=== PATIENT | female | born 2000 | race Caucasian/White ===

== ENCOUNTER 2022-01-16 18:17 | Emergency (ER) | payer OTHER, SELFPAY ==
[2022-01-16 18:22] VITALS: BP 109/75; PULSE 78; RESP 20; TEMP 36.7; O2SAT 97; BMI 22.9
--- NOTE | 2022-01-16 18:45 | ED.GENADULT ---
HPI - General Adult General Time Seen by Provider: 18:45 Date Seen: 01/16/22 Chief complaint: Headache/Migraine Stated complaint: Migraine Time Seen by Provider: 01/16/22 18:44 Source: patient and RN notes reviewed Mode of arrival: ambulatory Limitations: no limitations History of Present Illness HPI narrative: Patient is a 21-year-old [employer] student coming in with a migraine. It is generalized her whole head which is typical for her. She started propranolol recently for migraine prophylaxis. She has been trying [id number] medicines. College starts on Wednesday, she is a physics major, thinks she may go to graduate school. She has not been sick with anything, no cold or cough symptoms. No sore throat. No neurologic changes. She has photophobia, phonophobia. Past medical history is significant for her migraine headaches and epilepsy per her mom. Related Data Home Medications Medication Instructions Recorded Confirmed lamotrigine 25 mg tablet mg 01/16/22 propranolol 10 mg tablet mg 01/16/22 Previous Rx's Medication Instructions Recorded prednisone 20 mg tablet 20 mg PO BID #10 tabs 01/16/22 Allergies Allergy/AdvReac Type Severity Reaction Status Date / Time Penicillins Allergy Unknown Verified 01/16/22 18:30 zolmitriptan Allergy Unknown Verified 01/16/22 18:30 Review of Systems Status of ROS: Reports: 6 or more systems reviewed and unremarkable except as noted in History and below PFSH PFS Social History Smoking Status: Never smoker Do you use any of these nicotine containing products: None Second hand tobacco smoke exposure: No How often do you have a drink containing alcohol: never AUDIT-C Alcohol total score: 0 Non-prescribed substance use: marijuana (any form) Exam Const: Vital Signs, click to edit/add: Vital Signs - 24 hr 01/16/22 18:22 Temperature 98.1 F Pulse Rate [Pulse Oximeter] 78 Respiratory Rate 20 Blood Pressure [Ri ght Upper Arm] 109/75 Pulse Oximetry 97 Oxygen Delivery Me thod Room Air Documenting provider has reviewed patient's vital signs: yes Common normals: no apparent distress (Wearing sunglasses), average body habitus, oriented x3, no limitations, healthy appearing, alert and well nourished General appearance: cooperative, comfortable and well kempt HENMT: Common normals: normocephalic, head/scalp atraumatic, hearing grossly normal bilaterally, external ears normal, EAC's normal, TM's normal bilaterally, external nose normal, nasal mucous membranes and turbinates normal, moist oral mucous membranes, oropharynx normal, dentition normal and gingiva normal Head and scalp: normocephalic and atraumatic Nose: external nose normal and nasal mucous membranes and turbinates normal External ear: external ears normal External auditory canal: EAC's normal Tympanic membrane: TM's normal bilaterally Eye: Common normals: PERRL, EOMs intact bilaterally, conjunctivae normal and no scleral icterus Conjunctiva: conjunctiva(e) normal Pupil: PERRL Neck & C-Spine: Common normals: full ROM, no lymphadenopathy, supple, no meningeal signs, no JVD and thyroid normal Thyroid: thyroid normal Resp: Common normals: normal respiratory effort, no retractions, no use of accessory muscles and clear to auscultation bilaterally Auscultation: clear to auscultation bilaterally Cardio: Common normals: no JVD, regular rate, regular rhythm, S1 normal heart sound, S2 normal heart sound, no gallops, no clicks, no murmurs and no rub Rate: regular rate Rhythm: regular rhythm Heart sounds: S1 normal and S2 normal GI: Common normals: Normal to inspection, nondistended, normoactive bowel sounds present, soft to palpation, non-tender, no hepatosplenomegaly and no masses Palpation: soft and no hepatosplenomegaly Extremity: Common normals: normal to inspection, full ROM, normal capillary refill, no joint enlargement, no clubbing, cyanosis or edema, no calf tenderness and no pedal edema Neuro: Common normals: oriented x3, CN's II-XII intact bilaterally, moves all extremities, no focal motor deficits, no sensory deficits noted and gait normal Sensorium/orientation: alert Meningeal signs: no meningeal signs Speech: speech normal Psych: Appearance: well kempt Course Course Hospital Course: Will stab incision IV, 2 L normal saline, IV Benadryl 25 mg, IV Reglan and protocol 10 mg and 15 mg IV Toradol. This is not require neuroimaging or further labs at this point. There is nothing in her history that is concerning for other etiologies. Reevaluation(s) Reevaluation #1: Went in to check on my I and she is sleeping. She can not really tell me if her headache is improved or not, she does states she is tired when I arouse her. I did speak with her mom which she was okay with via phone. Mom is concerned about her migraines wanting to know about abortive medicines. She is reported the failed some triptans, reviewed with Mom that this is beyond my scope of practice and would recommend talking to her neurologist. She was okay with that. If her daughter is not improved with the medicines, will sign out to do the ketamine protocol. I will send a prescription of steroids into the pharmacy for her to start tomorrow if she does have ongoing migraine. Time: 19:50 Reevaluation #2: Awoke patient, headache is improved but is still somewhat there. She is still having some milder pain. She is quite sleepy and groggy from the Benadryl in the Reglan that I do not feel she would tolerate ketamine very well. She needs to be ambulatory to get back home. We will try a a dose of IV dexamethasone 10 mg. Have her go home and rest. She is agreement to that plan. Time: 21:04 Vital Signs Vital signs: Initial Vital Signs Temperature 98.1 F 01/16/22 18:22 Temperature Source Temporal Artery Scan 01/16/22 18:22 Pulse Rate 78 01/16/22 18:22 Respiratory Rate 20 01/16/22 18:22 Blood Pressure 109/75 01/16/22 18:22 Blood Pressure Mean 86 01/16/22 18:22 Blood Pressure Position Supine 01/16/22 18:22 Pulse Oximetry 97 01/16/22 18:22 Oxygen Delivery Method 01/16/22 18:22 Vital Signs Temperature 98.1 F 01/16/22 18:22 Pulse Rate 78 01/16/22 18:22 Respiratory Rate 20 01/16/22 18:22 Blood Pressure 109/75 01/16/22 18:22 Pulse Oximetry 97 01/16/22 18:22 Oxygen Delivery Method 01/16/22 18:22 Temperature 98.1 F 01/16/22 18:22 Pulse Rate 78 01/16/22 18:22 Respiratory Rate 20 01/16/22 18:22 Blood Pressure 109/75 01/16/22 18:22 Pulse Oximetry 97 01/16/22 18:22 Oxygen Delivery Method 01/16/22 18:22 Critical Care Time Critical Care Time Critical Care Time: No Discharge Plan Discharge Clinical Impression: Migraine Patient Disposition: Home, Self-Care Condition: Stable Additional Instructions: Can start prednisone if you have ongoing headache tomorrow, take as prescribed and recommend taking it with food. Can continue with your normal medicines that you are on. If your headache does worsen again and is uncontrolled at home, can return for further evaluation management. Go home and rest tonight, try to get some sleep. Activity Level: Activity as Tolerated Prescriptions: New prednisone 20 mg tablet 20 mg PO BID Qty: 10 0RF No Action lamotrigine 25 mg tablet propranolol 10 mg tablet Label Comments: TAKE 1 TO 2 TABLETS BY MOUTH TWICE DAILY. START WITH 1 TABLET TWICE DAILY AND INCREASE TO 2 TABLETS TWICE DAILY AFTER 2 WEEKS TOLERATED Stand Alone Forms: [employer] Info Instructions
[2022-01-16] MEDS: METOCLOPRAMIDE HCL 10 MG in 0.9 % SODIUM CHLORIDE 100 ml 100 ML 306 MG IVPB (19:30)
[2022-01-16] MEDS: diphenhydrAMINE 50 MG/ML inj 25 MG IVP (19:30)
[2022-01-16] MEDS: KETOROLAC 15 MG/ML inj IVP (19:30)
[2022-01-16] MEDS: 0.9 % SODIUM CHLORIDE 1000 ml 1,000 ML IV (19:30)
[2022-01-16] MEDS: dexAMETHasone 10 MG/ML inj IVP (21:08)
== END 2022-01-16 21:22 | disposition home or self-care (01) ==
PROVIDERS: Emergency Provider Family Medicine
DX: G43.909 Migraine, unspecified, not intractable, without status migrainosus (principal)
CPT/HCPCS: 96365; 96375; 96376; 99284; J1100; J1200; J1885; J2765; J7030

== ENCOUNTER 2022-01-17 12:42 | Emergency (ER) | payer OTHER, SELFPAY ==
[2022-01-17 13:06] VITALS: BP 108/76; PULSE 71; RESP 14; TEMP 36.7; O2SAT 96; BMI 22.9
--- NOTE | 2022-01-17 13:54 | ED.HA ---
HPI - Headache General Chief Complaint: Headache/Migraine Stated Complaint: Migraine Time Seen by Provider: 01/17/22 12:49 History of Present Illness HPI Narrative: This 21-year-old female comes in with persistent migraine headache. She states that she has had this for 7 days and has had pain at 7 up to 10/10 in severity. She was seen yesterday and received IV doses of Toradol, Reglan, and Benadryl. She also received a steroid and a prescription for prednisone. She has not filled the prescription for prednisone yet. She states that her headache is not any better. She does not report any neurologic deficits. She has a history of recurrent migraines and is currently taking propranolol for the past week in hopes that this can be a preventative treatment. She has also used various rescue medications which of generally not been helpful. Related Data Home Medications Medication Instructions Recorded Confirmed lamotrigine 25 mg tablet mg 01/16/22 propranolol 10 mg tablet mg 01/16/22 Previous Rx's Medication Instructions Recorded prednisone 20 mg tablet 20 mg PO BID #10 tabs 01/16/22 ketorolac 10 mg tablet 10 mg PO Q8H 5 days #15 tabs 01/17/22 Allergies Allergy/AdvReac Type Severity Reaction Status Date / Time Penicillins Allergy Unknown Verified 01/16/22 18:30 zolmitriptan Allergy Unknown Verified 01/16/22 18:30 Review of Systems Status of ROS: Reports: 10 or more systems reviewed and unremarkable except as noted in History and below Narrative: Constitutional: No fevers, no weight gain or loss. Eyes: No discharge. No vision changes. HENT: No congestion, no sore throat, no ear pain. Persistent and recurrent migraine headaches with associated nausea, vomiting, and light sensitivity. Cardiovascular: No chest pain, no palpitations. Respiratory: No shortness of breath, no wheezes, no cough. Gastrointestinal: No abdominal pain, no vomiting, no diarrhea. Genitourinary: No dysuria, no hematuria. Musculoskeletal: Normal range of motion. Skin: No rashes, no pruritis. Neurological: No dizziness, weakness, sensory change, speech change. Endo/Heme/Allergies: No bruising or bleeding. No polydipsia. Pysch: no suicidality, no anxiety, no insomnia. All other systems reviewed and are negative. PFSH PFSH Social History Smoking Status: Never smoker Do you use any of these nicotine containing products: None Second hand tobacco smoke exposure: No How often do you have a drink containing alcohol: never AUDIT-C Alcohol total score: 0 Non-prescribed substance use: marijuana (any form) Exam Narrative: Exam Narrative: Constitutional: Well-developed, well-nourished, no acute distress. HEENT: Normocephalic, atraumatic. Light sensitivity. Neck: Normal range of motion. Nontender. Supple. Heart: Regular. No murmurs. Normal rate. Intact distal pulses. Lungs: Clear to auscultation. No chest discomfort. No wheezes, rhonchi, or rales. Abdomen: Normal bowel sounds. Nontender. No rebound tenderness. Genitalia: Deferred. Back: No midline tenderness. Normal range of motion. Extremities: Normal range of motion. No injury. Skin: Intact. No rash. Warm. No erythema or pallor. Neurologic: No altered sensation. No weakness. Alert and oriented. Psychiatric: No suicidality. No anxiety or depression. No insomnia. Nursing notes and vitals signs are reviewed. Const: Vital Signs, click to edit/add: Vital Signs - 24 hr 01/17/22 13:06 Temperature 98.1 F Pulse Rate [Right Pulse Oximeter] 71 Respiratory Rate 14 Blood Pressure [Ri ght Upper Arm] 108/76 Pulse Oximetry 96 Oxygen Delivery Me thod Room Air Course Vital Signs Vital signs: Initial Vital Signs Temperature 98.1 F 01/17/22 13:06 Temperature Source Temporal Artery Scan 01/17/22 13:06 Pulse Rate 71 01/17/22 13:06 Respiratory Rate 14 01/17/22 13:06 Blood Pressure 108/76 01/17/22 13:06 Blood Pressure Mean 86 01/17/22 13:06 Blood Pressure Position Sitting 01/17/22 13:06 Pulse Oximetry 96 01/17/22 13:06 Oxygen Delivery Method 01/17/22 13:06 Vital Signs Temperature 98.1 F 01/17/22 13:06 Pulse Rate 71 01/17/22 13:06 Respiratory Rate 14 01/17/22 13:06 Blood Pressure 108/76 01/17/22 13:06 Pulse Oximetry 96 01/17/22 13:06 Oxygen Delivery Method 01/17/22 13:06 Temperature 98.1 F 01/17/22 13:06 Pulse Rate 71 01/17/22 13:06 Respiratory Rate 14 01/17/22 13:06 Blood Pressure 108/76 01/17/22 13:06 Pulse Oximetry 96 01/17/22 13:06 Oxygen Delivery Method 01/17/22 13:06 MDM - Headache MDM Narrative Medical decision making narrative: This patient returns with persistent migraine headache symptoms. She was seen yesterday and returns today stating that she has had migraine now for about 7 days. She does have a history of migraines and epilepsy. She is seeing a neurologist for both of these matters. She is not exhibiting any neurologic deficits or suspicion requiring further diagnostic studies today. An IV was established where she received doses of medication including Toradol Coke 30 mg, Benadryl 25 mg, Zofran 4 mg, and this was followed with 20 mg of ketamine given slowly over 20-30 minutes. This brought sufficient relief to her headache. She is okay to return home. I did prescribe Toradol and S trich + to be used as needed and directed for rescue medicine treatment of her recurrent headaches. Discharge Plan Discharge Clinical Impression: Migraine Patient Disposition: Home, Self-Care Condition: Improved Additional Instructions: Take medication as needed and indicated. Follow up with MD or return if worsening. Prescriptions: New ketorolac 10 mg tablet 10 mg PO Q8H 5 Days Qty: 15 0RF No Action lamotrigine 25 mg tablet propranolol 10 mg tablet Label Comments: TAKE 1 TO 2 TABLETS BY MOUTH TWICE DAILY. START WITH 1 TABLET TWICE DAILY AND INCREASE TO 2 TABLETS TWICE DAILY AFTER 2 WEEKS TOLERATED prednisone 20 mg tablet 20 mg PO BID Qty: 10 0RF Follow Up/Referrals: Provider,Not a Local [Primary Care Provider] - Stand Alone Forms: [employer] Info Instructions
[2022-01-17] MEDS: ONDANSETRON 2 MG/ML inj 4 MG IVP (14:10)
[2022-01-17] MEDS: KETOROLAC 30 MG/ML inj IVP (14:12)
[2022-01-17] MEDS: diphenhydrAMINE 50 MG/ML inj IVP (14:15)
[2022-01-17] MEDS: KETAMINE HCL 20 MG in 0.9 % SODIUM CHLORIDE 100 ml 100 ML 300.6 MG IVPB (14:43)
== END 2022-01-17 16:12 | disposition home or self-care (01) ==
PROVIDERS: Emergency Provider Emergency Medicine Emergency Medical Services
DX: G43.811 Other migraine, intractable, with status migrainosus (principal)
CPT/HCPCS: 96365; 96375; 99284; J1200; J1885; J2405; J3490

== ENCOUNTER 2022-01-18 18:09 | Outpatient (CLI) | payer OTHER, SELFPAY | END 2022-01-18 18:10 | disposition home or self-care (01) | LOC: AMB 02-05 14:41 | PROVIDERS: Visit Provider Emergency Medicine Emergency Medical Services | DX: R51.9 Headache, unspecified (principal) | CPT/HCPCS: A0425; A0427 ==

== ENCOUNTER 2022-01-18 18:25 | Emergency (ER) | payer OTHER, SELFPAY ==
[2022-01-18] VITALS (11 sets, daily range): BP systolic 81–106; BP diastolic 54–66; PULSE 51–101; RESP 18; TEMP 36.6–37.5; O2SAT 96–98; BMI 22.9
--- NOTE | 2022-01-18 20:39 | CRLHL7_ITS ---
For Patients: As a result of the Century Cures Act, medical imaging exams and procedure reports are released immediately into your electronic medical record. You may view this report before your referring provider. If you have questions, please contact your health care provider. INDICATION: Headache. TECHNIQUE: Chest 1 view. COMPARISON: None FINDINGS: Cardiovascular and mediastinum: Heart size and vasculature are normal in caliber and appearance. Mediastinum is within normal limits. Lungs and pleural space: Lungs are clear. No sign of infiltrate or mass. No sign of pleural effusion. No pneumothorax. Bones and soft tissues: No significant findings. IMPRESSION: Unremarkable chest. Dictated by William Multani MD @ 01/18/2022 9:27:50 PM (Electronically Signed)
--- NOTE | 2022-01-18 20:44 | ED.HA ---
HPI - Headache General Time Seen by Provider: 20:25 Date Seen: 01/18/22 Chief Complaint: Headache/Migraine Stated Complaint: Head pain Time Seen by Provider: 01/18/22 20:16 Source: patient, family, RN notes reviewed and old records reviewed Mode of arrival: ambulatory Limitations: no limitations History of Present Illness HPI Narrative: Alexa is a 21-year-old female with history of epilepsy and chronic migraine who comes to the emergency room for the 3rd day in a row for persistent headache. Patient is here with her partner. Mother is on the phone and is in I [facility]. Alexa had the onset of a headache 8 days ago. She typically starts feeling this in her eyes and then the pain starts radiating to the top of her head. Incidentally at that time she also started propanolol for chronic migraine. She notes that she has more pressure behind her eyes this time and that she is very stressed out. I do ask her if the headache is causing her stress or there is this there is something else going on and she says it is the headache. She denies any visual changes with the exception that she is light sensitive. She is very nauseated but has not had any vomiting. She denies any fever, numbness or tingling of the body or extremities and she has no neck pain. She does have recent travel in [place] but cannot recall any tick bites or unusual events. She has no cough cold sore throat or runny nose. She denies dysuria. Patient's mother, Yasmine, states that she would like me a to not be released unless she has significant pain improvement. She states that the past 2 days they have only been able to get her headache down to a 6. Patient's mom has provided me with the phone number to patient's doctor at the headache clinic Dr. Delcid. [phone]. Patient's mom wants me to know that this this the 1st time that her daughter has had to come to the emergency room for headaches. They note that in the past year she has been suffering from chronic migraines and prior to that occasional migraines. She has tried multiple medications including Elavil, tripped hands. At home she has Toradol and Excedrin and these have not helped. Pain at times up to 10/10. Patient denies trauma. Headache does not appear to be positional. Patient does note that she feels more comfortable lying down but does not think it actually changes the pain level while she is supine verses standing up. Here in the emergency room initially treated with Benadryl, Reglan, Toradol, IV steroid on day 1. On day 2 patient received Toradol, Benadryl, Zofran, ketamine. Has also been taking prednisone. Per mom ketamine did seem to help the headache although it did not resolve. Today's patient's 3rd visit. They are open to laboratory workup including x-ray, CT, blood work. MD elicited complaint: migraine Related Data Home Medications Medication Instructions Recorded Confirmed lamotrigine 25 mg tablet mg 01/16/22 propranolol 10 mg tablet mg 01/16/22 Previous Rx's Medication Instructions Recorded prednisone 20 mg tablet 20 mg PO BID #10 tabs 01/16/22 ketorolac 10 mg tablet 10 mg PO Q8H 5 days #15 tabs 01/17/22 Allergies Allergy/AdvReac Type Severity Reaction Status Date / Time Penicillins Allergy Unknown Verified 01/16/22 18:30 zolmitriptan Allergy Unknown Verified 01/16/22 18:30 Review of Systems Status of ROS: Reports: 10 or more systems reviewed and unremarkable except as noted in History and below Const: Denies: fever or chills Eyes: Reports: light sensitivity and eye discomfort; Denies: blurry vision, blind spots, eye discharge or floaters ENMT: Denies: throat pain, neck pain, throat swelling, difficulty swallowing or change in hearing Cardio: Denies: chest pain, palpitations or shortness of breath with exertion Resp: Denies: shortness of breath, cough or pain on inspiration GI: Reports: nausea; Denies: abdominal pain, vomiting, diarrhea, constipation or difficulty swallowing : Denies: painful urination or urinary frequency Musculo: Denies: back pain, neck pain or extremity pain Integ/Breast: Denies: rash Neuro: Reports: headache; Denies: numbness in extremities, weakness in extremities, lack of coordination, dizziness, confusion or difficulty communicating thoughts Psych: Reports: anxiety Endo: Denies: excessive urination Allergy/Immuno: Denies: throat swelling PFSH PFSH Social History Smoking Status: Never smoker Do you use any of these nicotine containing products: None Second hand tobacco smoke exposure: No How often do you have a drink containing alcohol: never AUDIT-C Alcohol total score: 0 Non-prescribed substance use: marijuana (any form) service: No Exam Const: Vital Signs, click to edit/add: Vital Signs - 24 hr 01/18/22 18:39 01/18/22 20:02 01/18/22 21:30 Temperature 97.9 F 99.5 F Pulse Rate 64 Pulse Rate [Brachi al] 64 Pulse Rate [Pulse Oximeter] 101 H Respiratory Rate 18 Blood Pressure 90/57 L Blood Pressure [Ri ght Upper Arm] 92/61 106/54 L Pulse Oximetry 97 98 Oxygen Delivery Me od Room Air Room Air 01/18/22 21:31 01/18/22 21:32 01/18/22 22:04 Temperature Pulse Rate 61 62 57 L Pulse Rate [Brachi al] Pulse Rate [Pulse Oximeter] Respiratory Rate Blood Pressure 87/55 L Blood Pressure [Ri ght Upper Arm] Pulse Oximetry 96 97 97 Oxygen Delivery Me thod 01/18/22 22:32 01/18/22 22:33 01/18/22 23:02 Temperature Pulse Rate 70 58 L Pulse Rate [Brachi al] Pulse Rate [Pulse Oximeter] Respiratory Rate Blood Pressure 104/61 81/65 L Blood Pressure [Ri ght Upper Arm] Pulse Oximetry 98 97 Oxygen Delivery Me thod 01/18/22 23:32 01/18/22 23:33 01/19/22 00:02 Temperature Pulse Rate 51 L 52 L 59 L Pulse Rate [Brachi al] Pulse Rate [Pulse Oximeter] Respiratory Rate Blood Pressure 103/66 108/68 Blood Pressure [Ri ght Upper Arm] Pulse Oximetry 96 96 96 Oxygen Delivery Me thod 01/19/22 00:05 01/19/22 00:15 01/19/22 00:32 Temperature Pulse Rate 59 L 58 L 55 L Pulse Rate [Brachi al] Pulse Rate [Pulse Oximeter] Respiratory Rate Blood Pressure 109/70 Blood Pressure [Ri ght Upper Arm] Pulse Oximetry 97 97 96 Oxygen Delivery Me thod 01/19/22 00:33 01/19/22 01:32 01/19/22 01:33 Temperature Pulse Rate 55 L 53 L 53 L Pulse Rate [Brachi al] Pulse Rate [Pulse Oximeter] Respiratory Rate Blood Pressure 100/65 Blood Pressure [Ri ght Upper Arm] Pulse Oximetry 96 97 96 Oxygen Delivery Me thod Documenting provider has reviewed patient's vital signs: yes Common normals: oriented x3, no limitations and healthy appearing Exam limitations: no altered mental status General appearance: cooperative, well kempt and in distress mild; not ill appearing Orientation/consciousness: Yes awake (Initially somewhat sleepy but mentating normally upon awakening.) HENMT: Common normals: normocephalic, head/scalp atraumatic, external ears normal and external nose normal Head and scalp: normocephalic and atraumatic Face and sinus: normal facial exam and face symmetric Nose: external nose normal External ear: external ears normal Mouth: oral and palatal mucosa normal, lip normal and tongue normal Throat: posterior oropharynx normal Eye: Common normals: PERRL (Approximately 5 mm and constrict to 2.5 mm) General eye: normal appearance of both eyes Periorbital: periorbital findings normal Eyelid: eyelids normal Pupil: PERRL (Approximately 5 mm and constrict to 2.5 mm) Direct Ophthalmoscopy: photophobia Neck & C-Spine: Common normals: full ROM, no lymphadenopathy, supple and no meningeal signs Resp: Common normals: normal respiratory effort and clear to auscultation bilaterally Effort & inspection: able to speak in complete sentences Auscultation: clear to auscultation bilaterally Cardio: Common normals: regular rate and regular rhythm Rate: regular rate Rhythm: regular rhythm GI: Common normals: soft to palpation and non-tender Palpation: soft : Common normals: no CVA tenderness Bladder/kidney exam: no CVA tenderness; no CVA tenderness Back & Pelvis: Common normals: no CVA tenderness General back: no CVA tenderness Thoracic spine/upper back: normal to inspection; no thoracic spinal tenderness Lumbar spine/lower back: normal to inspection Extremity: Common normals: normal to inspection General: normal exam except as noted Neuro: Common normals: oriented x3, CN's II-XII intact bilaterally, moves all extremities, no focal motor deficits and no sensory deficits noted Sensorium/orientation: awake (Initially somewhat sleepy but mentating normally upon awakening.) Meningeal signs: no meningeal signs Coordination/balance: [id number] test normal Speech: speech normal Motor exam: strength 5/5 throughout, no pronator drift, no tremor noted, muscle tone normal throughout and no movement abnormalities noted Coordination: [id number] test normal Pupil exam: Normal pupillary reactivity/response: bilateral Psych: Common normals: mental status grossly normal, thought process normal, cooperative, affect normal and speech normal Appearance: well kempt Attitude: calm and engaged Activity/motor behavior: appropriate eye contact Speech: normal speech Thought process: normal thought process Thought content: normal thought content Attention/concentration: attention grossly intact Memory/cognition: memory grossly intact Insight: insight good Judgement: judgment good Skin: Common normals: no rashes or lesions noted General skin exam: no rashes or lesions noted Course Course Hospital Course: Patient returns today 3 days in a row for ongoing headache. Certainly history does suggest intractable migraine but I believe we need to draw blood for leuks closer look at CBC, comprehensive panel, urinalysis. Would also add COVID test, West Nile, strep. Chest x-ray will also be done. Once these results are made available I will speak to patient's neurologist. If neurologist not available as this is a Wednesday evening will speak to [facility]. Mom is in agreement with this plan. Does understand I do not have MRI here but CT could be an option. Did talk about radiation exposure but again they would be accepting if this was our only option. Mom states that the ketamine did have somewhat. Will use ketamine 20 mg IV piggyback. Will also give 1 L of normal saline as well as Ativan 0.5 mg IV. Also spoke about the possible use of narcotics. Will hold off right now but if pain is not improved this is certainly an option. Reevaluation(s) Reevaluation #1: Patient noted initial improvement of her headache with ketamine but his pain returns we do turn to morphine 2 mg IV. This was repeated x1. Consultations Consultation #1: Dr. Hernandez, neurology consultant in ergonomics and safety reached this evening after I failed to contact patient's headache clinic. For future reference the headache clinic number is [phone]. [facility] was kind enough to take my phone call and we discussed the patient. Suggestions at this point include CT and CT venogram. If that is reassuring suggestion for DH ergotamine 0.5 mg IV q.8 hours p.r.n. in association with Reglan 10 mg IV. Vital Signs Vital signs: Initial Vital Signs Temperature 97.9 F 01/18/22 18:39 Temperature Source Temporal Artery Scan 01/18/22 18:39 Pulse Rate 101 H 01/18/22 18:39 Blood Pressure 92/61 01/18/22 18:39 Blood Pressure Mean 71 01/18/22 18:39 Blood Pressure Position Supine 01/18/22 18:39 Pulse Oximetry 97 01/18/22 18:39 Oxygen Delivery Method 01/18/22 18:39 Vital Signs Temperature 97.9 F 01/18/22 18:39 Pulse Rate 101 H 01/18/22 18:39 Blood Pressure 92/61 01/18/22 18:39 Pulse Oximetry 97 01/18/22 18:39 Oxygen Delivery Method 01/18/22 18:39 Temperature 99.5 F 01/18/22 20:02 Pulse Rate 53 L 01/19/22 01:33 Respiratory Rate 18 01/18/22 20:02 Blood Pressure 100/65 01/19/22 01:32 Pulse Oximetry 96 01/19/22 01:33 Oxygen Delivery Method 01/18/22 20:02 MDM - Headache MDM Narrative Medical decision making narrative: 1. Intractable migraine-patient has had 8 days of ongoing headache associated with light sensitivity and nausea. No neurological deficits have been noted. Given ongoing pain and poor response to are normal headache protocols laboratory values drawn tonight as well as radiological studies ordered. COVID and rapid strep negative. West Nile is currently pending. White count reassuring at 10.22 with a normal CRP. Urinalysis was concentrated with a specific gravity greater than 10 30 but no evidence of urinary ketones. Influenza and COVID negative. Patient and her mom receptive to trying ketamine again. Ketamine 20 mg IV as well as Ativan 0.5 mg IV was given. Unfortunately headache is not significantly improved and patient has required morphine 2 mg x 2. Neurological consult accomplished and CT/CT venogram currently pending. 2. Disposition-this patient was signed out to partner Dr. Colon for review of CT venogram. Discussed neurologist suggestion for the use of DHE 0.5 mg IV given in conjunction with Reglan 10 mg IV. Also spoke of the use of Benadryl to prevent Reglan side-effect dysphoria. Finally, patient has the trip tends listed as an allergy because it made her jaw and neck tightening. She states she finally had to stop taking them because of the side effects. She has no history of heart problems and therefore I do not see a contraindication to the use of our got a means as suggested by Neurology. Medical Records Attestation: I reviewed the patient's medical records. Lab Data Attestation: I reviewed the patient's lab results. Labs: Lab Results 01/18/22 01/18/22 01/18/22 Range/Units 20:51 20:51 20:51 WBC (4.50-11.00) K/uL RBC (4.00-5.20) m/uL Hgb (12.0-16.0) gm/dL Hct (33.0-51.0) % MCV (80-100) fL MCH (26-34) pg MCHC (32-36) gm/dL RDW Coeff of Yahaira (11.5-15.5) % Plt Count (140-440) K/uL Neut % (Auto) (42.0-72.0) % Lymph % (Auto) (20-44) % [place] % (Auto) (0.0-11.0) % Eos % (Auto) (0.0-7.0) % Baso % (Auto) (0.0-3.0) % Neut # (Auto) (1.7-7.0) K/uL Lymph # (Auto) (0.90-2.90) K/uL [place] # (Auto) (0.00-0.90) K/UL Eos # (Auto) (0.00-0.50) K/uL Baso # (Auto) (0.00-0.30) K/uL Abs Immat Gran (auto) (0.00-0.30) K/uL Sodium (135-149) mmol/L Potassium (3.6-5.1) mmol/L Chloride (96-114) mmol/L Carbon Dioxide (20-32) mmol/L BUN (5-24) mg/dL Creatinine (0.5-1.5) mg/dL Estimated Creat Clear Estimated GFR ml/min Glucose (60-115) mg/dL Calcium (8.4-10.6) mg/dL Total Bilirubin (0.1-1.5) mg/dL AST (12-35) U/L ALT (4-35) U/L Alkaline Phosphatase (40-150) U/L C-Reactive Protein (0.5-1.0) mg/dL Total Protein (6.0-8.3) g/dL Albumin (3.3-5.0) g/dL Urine Color Yellow (Yellow) Urine Appearance Clear (Clear) Urine pH 6.0 (5.0-8.5) Ur Specific [place] >= 1.030 (1.000-1.030) Urine Protein Negative (Negative) Urine Glucose (UA) Negative (Negative) Urine Ketones Negative (Negative) Urine Blood 1+ A (Negative) Urine Nitrite Negative (Negative) Urine Bilirubin Negative (Negative) Urine Urobilinogen 0.2 (0.2-1.0) Ur Leukocyte Esterase Trace A (Negative) Urine RBC 0-2 (0-2) Urine WBC 0-2 (0-5) Urine WBC Clumps None (None) Ur Squamous Epith Cells None (None-Few) Urine Bacteria None (None) SARS-CoV-2 (PCR) Negative SARS-CoV-2 (Negative) Influenza Type A (PCR) Negative PCR FLU A (Negative) Influenza Type B (PCR) Negative PCR FLU B (Negative) Group A Strep DNA NOT DETECTED (No Detected) 01/18/22 01/18/22 Range/Units 20:55 20:55 WBC 10.22 (4.50-11.00) K/uL RBC 4.40 (4.00-5.20) m/uL Hgb 13.4 (12.0-16.0) gm/dL Hct 39.6 (33.0-51.0) % MCV 90 (80-100) fL MCH 31 (26-34) pg MCHC 34 (32-36) gm/dL RDW Coeff of Yahaira 11.6 (11.5-15.5) % Plt Count 358 (140-440) K/uL Neut % (Auto) 78.8 H (42.0-72.0) % Lymph % (Auto) 13.8 L (20-44) % [place] % (Auto) 6.9 (0.0-11.0) % Eos % (Auto) 0.1 (0.0-7.0) % Baso % (Auto) 0.3 (0.0-3.0) % Neut # (Auto) 8.10 H (1.7-7.0) K/uL Lymph # (Auto) 1.40 (0.90-2.90) K/uL [place] # (Auto) 0.70 (0.00-0.90) K/UL Eos # (Auto) 0.01 (0.00-0.50) K/uL Baso # (Auto) 0.03 (0.00-0.30) K/uL Abs Immat Gran (auto) 0.01 (0.00-0.30) K/uL Sodium 140 (135-149) mmol/L Potassium 3.9 (3.6-5.1) mmol/L Chloride 105 (96-114) mmol/L Carbon Dioxide 27 (20-32) mmol/L BUN 15 (5-24) mg/dL Creatinine 0.6 (0.5-1.5) mg/dL Estimated Creat Clear 117.31 Estimated GFR 131 ml/min Glucose 130 H (60-115) mg/dL Calcium 8.7 (8.4-10.6) mg/dL Total Bilirubin 0.4 (0.1-1.5) mg/dL AST 20 (12-35) U/L ALT 17 (4-35) U/L Alkaline Phosphatase 83 (40-150) U/L C-Reactive Protein < 0.5 L (0.5-1.0) mg/dL Total Protein 6.9 (6.0-8.3) g/dL Albumin 4.4 (3.3-5.0) g/dL Urine Color (Yellow) Urine Appearance (Clear) Urine pH (5.0-8.5) Ur Specific [place] (1.000-1.030) Urine Protein (Negative) Urine Glucose (UA) (Negative) Urine Ketones (Negative) Urine Blood (Negative) Urine Nitrite (Negative) Urine Bilirubin (Negative) Urine Urobilinogen (0.2-1.0) Ur Leukocyte Esterase (Negative) Urine RBC (0-2) Urine WBC (0-5) Urine WBC Clumps (None) Ur Squamous Epith Cells (None-Few) Urine Bacteria (None) SARS-CoV-2 (PCR) (Negative) Influenza Type A (PCR) (Negative) Influenza Type B (PCR) (Negative) Group A Strep DNA (No Detected) Imaging Data Chest x-ray: Attestation: I have reviewed the pertinent imaging results. My impression: By my read no evidence of infiltrates. Radiologist's impression: No acute findings Discharge Plan Discharge Prescriptions: No Action lamotrigine 25 mg tablet propranolol 10 mg tablet Label Comments: TAKE 1 TO 2 TABLETS BY MOUTH TWICE DAILY. START WITH 1 TABLET TWICE DAILY AND INCREASE TO 2 TABLETS TWICE DAILY AFTER 2 WEEKS TOLERATED prednisone 20 mg tablet 20 mg PO BID Qty: 10 0RF ketorolac 10 mg tablet 10 mg PO Q8H 5 Days Qty: 15 0RF Follow Up/Referrals: Provider,Not a Local [Primary Care Provider] -
[2022-01-18 21:11] LABS: Basophils Absolute Auto 0.03 K/uL (0.00-0.30); Basophils Percent Auto 0.3 % (0.0-3.0); Eosinophils Absolute Auto 0.01 K/uL (0.00-0.50); Eosinophils Percent Auto 0.1 % (0.0-7.0); Hematocrit 39.6 % (33.0-51.0); Hemoglobin* 13.4 gm/dL (12.0-16.0); Immature Granulocytes Abs Auto 0.01 K/uL (0.00-0.30); Lymphocytes Percent Auto 13.8 % (20-44); Mean Corpuscular HGB Conc 34 gm/dL (32-36); Mean Corpuscular Hemoglobin 31 pg (26-34); Mean Corpuscular Volume 90 fL (80-100); Monocytes Percent Auto 6.9 % (0.0-11.0); Neutrophils Percent Auto 78.8 % (42.0-72.0); Platelet Count* 358 K/uL (140-440); RDW Coefficient of Variation % 11.6 % (11.5-15.5); White Blood Count* 10.22 K/uL (4.50-11.00)
[2022-01-18] MEDS: LORazepam 2 MG/ML inj 0.5 MG IVP (21:15)
[2022-01-18] MEDS: 0.9 % SODIUM CHLORIDE 1000 ml 1,000 ML IV (21:16)
[2022-01-18 21:17] LABS: Slide Review Reflex No
[2022-01-18] MEDS: KETAMINE HCL 20 MG in 0.9 % SODIUM CHLORIDE 100 ml 100 ML 200.4 MG IVPB (21:19)
[2022-01-18 21:22] LABS: Albumin* 4.4 g/dL (3.3-5.0); Chloride* 105 mmol/L (96-114); Sodium* 140 mmol/L (135-149)
[2022-01-18 21:22] LABS: Appearance Urine Clear (Clear); Bilirubin Urine Negative (Negative); Blood Urine 1+ (Negative); Color Urine Yellow (Yellow); Glucose Urine Negative (Negative); Ketones Urine Negative (Negative); Leukocyte Esterase Urine Trace (Negative); Nitrite Urine Negative (Negative); Protein Urine Negative (Negative); Specific Gravity Urine >= 1.030 (1.000-1.030); Urobilinogen Urine 0.2 (0.2-1.0)
[2022-01-18 21:23] LABS: Potassium* 3.9 mmol/L (3.6-5.1)
[2022-01-18 21:25] LABS: Alkaline Phosphatase* 83 U/L (40-150); Aspartate Amino Transferase* 20 U/L (12-35); Bilirubin Total* 0.4 mg/dL (0.1-1.5); Blood Urea Nitrogen* 15 mg/dL (5-24); Carbon Dioxide* 27 mmol/L (20-32); Creatinine* 0.6 mg/dL (0.5-1.5); Est. Creatinine Clearance* 117.31; Estimated Glomerular Filt Rate 131 ml/min; Glucose* 130 mg/dL (60-115); Total Protein* 6.9 g/dL (6.0-8.3)
[2022-01-18 21:26] LABS: Alanine Aminotransferase* 17 U/L (4-35); Calcium* 8.7 mg/dL (8.4-10.6)
[2022-01-18 21:39] LABS: Strep A DNA Probe* NOT DETECTED (No Detected)
[2022-01-18 21:52] LABS: PCR FLU A Negative PCR FLU A (Negative); PCR FLU B Negative PCR FLU B (Negative)
[2022-01-18 22:03] LABS: SARS PCR* Negative SARS-CoV-2 (Negative)
[2022-01-18 22:21] LABS: RBC Urine 0-2 (0-2); WBC Urine 0-2 (0-5)
[2022-01-18 22:28] LABS: C Reactive Protein* < 0.5 mg/dL (0.5-1.0)
[2022-01-18] MEDS: MORPHINE 2 MG/ML inj IVP (22:52)
--- NOTE | 2022-01-18 23:13 | CT_ITS ---
Patient: CARLEY LOCKHART Facility:?[facility] Patient ID:?[id number] Site Patient ID:?[id number]. Site :?[id number] Study:?CT-Head W/ and W/O Cont W/WO CT VENOGRAM W/45 SEC DE-01/19/2022 1:38:51 AM Ordering Physician:?Hilario Taylor Final Report: DATE: 01/19/2022 CLINICAL HISTORY: Patient with headache. TECHNIQUE: Standard helical CT image acquisition through the intracranial circulation following intravenous administration of contrast material with a fixed 40-second delay. Multiplanar reconstructed images performed on a separate workstation. COMPARISON: CT same day. FINDINGS: The superior sagittal sinus patent. The bilateral transverse and sigmoid sinuses are patent. The deep cerebral venous system is patent. The straight sinus is patent. The bilateral jugular bulbs are patent. IMPRESSION: Normal CT venogram of the head. Please note that all CT scans at this facility use dose modulation, iterative reconstruction, and/or weight-based dosing when appropriate to reduce radiation dose to as low as reasonably achievable. Dictated by Donn Hodges MD @ 01/19/2022 2:15:37 AM Signed by:?Donn Hodges MD @01/19/2022 2:15:37 AM (Electronic Signature)
[2022-01-19] VITALS (27 sets, daily range): BP systolic 96–112; BP diastolic 61–79; PULSE 48–76; RESP 18; TEMP 36.6; O2SAT 96–98
[2022-01-19] MEDS: MORPHINE 2 MG/ML inj IVP (00:13)
--- NOTE | 2022-01-19 03:03 | ED_ITS ---
HPI - General Adult General Chief complaint: Headache/Migraine Stated complaint: Head pain Time Seen by Provider: 01/18/22 20:16 Source: patient, family, RN notes reviewed and old records reviewed Mode of arrival: ambulatory Limitations: no limitations Related Data Home Medications Medication Instructions Recorded Confirmed lamotrigine 25 mg tablet mg 01/16/22 propranolol 10 mg tablet mg 01/16/22 Previous Rx's Medication Instructions Recorded prednisone 20 mg tablet 20 mg PO BID #10 tabs 01/16/22 ketorolac 10 mg tablet 10 mg PO Q8H 5 days #15 tabs 01/17/22 ergotamine 1 mg-caffeine 100 mg See Rx Instructions PO .COMPLEX 01/19/22 tablet #30 tabs Allergies Allergy/AdvReac Type Severity Reaction Status Date / Time Penicillins Allergy Unknown Verified 01/16/22 18:30 zolmitriptan Allergy Unknown Verified 01/16/22 18:30 [facility] Social History Smoking Status: Never smoker Do you use any of these nicotine containing products: None Second hand tobacco smoke exposure: No How often do you have a drink containing alcohol: never AUDIT-C Alcohol total score: 0 Non-prescribed substance use: marijuana (any form) service: No Exam Const: Vital Signs, click to edit/add: Vital Signs - 24 hr 01/18/22 18:39 01/18/22 20:02 01/18/22 21:30 Temperature 97.9 F 99.5 F Pulse Rate 64 Pulse Rate [Brachi al] 64 Pulse Rate [Pulse Oximeter] 101 H Respiratory Rate 18 Blood Pressure 90/57 L Blood Pressure [Ri ght Upper Arm] 92/61 106/54 L Pulse Oximetry 97 98 Oxygen Delivery Me thod Room Air Room Air 01/18/22 21:31 01/18/22 21:32 01/18/22 22:04 Temperature Pulse Rate 61 62 57 L Pulse Rate [Brachi al] Pulse Rate [Pulse Oximeter] Respiratory Rate Blood Pressure 87/55 L Blood Pressure [Ri ght Upper Arm] Pulse Oximetry 96 97 97 Oxygen Delivery Me thod 01/18/22 22:32 01/18/22 22:33 01/18/22 23:02 Temperature Pulse Rate 70 58 L Pulse Rate [Brachi al] Pulse Rate [Pulse Oximeter] Respiratory Rate Blood Pressure 104/61 81/65 L Blood Pressure [Ri ght Upper Arm] Pulse Oximetry 98 97 Oxygen Delivery Me thod 01/18/22 23:32 01/18/22 23:33 01/19/22 00:02 Temperature Pulse Rate 51 L 52 L 59 L Pulse Rate [Brachi al] Pulse Rate [Pulse Oximeter] Respiratory Rate Blood Pressure 103/66 108/68 Blood Pressure [Ri ght Upper Arm] Pulse Oximetry 96 96 96 Oxygen Delivery Me thod 01/19/22 00:05 01/19/22 00:15 01/19/22 00:32 Temperature Pulse Rate 59 L 58 L 55 L Pulse Rate [Brachi al] Pulse Rate [Pulse Oximeter] Respiratory Rate Blood Pressure 109/70 Blood Pressure [Ri ght Upper Arm] Pulse Oximetry 97 97 96 Oxygen Delivery Me thod 01/19/22 00:33 01/19/22 01:32 01/19/22 01:33 Temperature Pulse Rate 55 L 53 L 53 L Pulse Rate [Brachi al] Pulse Rate [Pulse Oximeter] Respiratory Rate Blood Pressure 100/65 Blood Pressure [Ri ght Upper Arm] Pulse Oximetry 96 97 96 Oxygen Delivery Me thod 01/19/22 02:02 01/19/22 02:03 01/19/22 02:32 Temperature Pulse Rate 55 L 55 L 55 L Pulse Rate [Brachi al] Pulse Rate [Pulse Oximeter] Respiratory Rate Blood Pressure 107/71 102/66 Blood Pressure [Ri ght Upper Arm] Pulse Oximetry 96 96 96 Oxygen Delivery Me thod 01/19/22 02:33 01/19/22 03:02 01/19/22 03:03 Temperature Pulse Rate 59 L 76 63 Pulse Rate [Brachi al] Pulse Rate [Pulse Oximeter] Respiratory Rate Blood Pressure 97/69 Blood Pressure [Ri ght Upper Arm] Pulse Oximetry 96 96 97 Oxygen Delivery Me thod 01/19/22 03:32 01/19/22 03:33 01/19/22 04:02 Temperature Pulse Rate 61 56 L Pulse Rate [Brachi al] Pulse Rate [Pulse Oximeter] Respiratory Rate Blood Pressure 102/67 103/67 Blood Pressure [Ri ght Upper Arm] Pulse Oximetry 97 97 Oxygen Delivery Me thod 01/19/22 04:32 01/19/22 04:33 01/19/22 05:02 Temperature Pulse Rate 56 L 57 L 52 L Pulse Rate [Brachi al] Pulse Rate [Pulse Oximeter] Respiratory Rate Blood Pressure 100/62 96/61 Blood Pressure [Ri ght Upper Arm] Pulse Oximetry 97 97 96 Oxygen Delivery Me thod 01/19/22 05:03 01/19/22 05:31 01/19/22 05:32 Temperature Pulse Rate 51 L 49 L 48 L Pulse Rate [Brachi al] Pulse Rate [Pulse Oximeter] Respiratory Rate Blood Pressure 100/64 Blood Pressure [Ri ght Upper Arm] Pulse Oximetry 96 97 96 Oxygen Delivery Me thod 01/19/22 06:02 01/19/22 06:03 Temperature Pulse Rate 51 L 52 L Pulse Rate [Brachi al] Pulse Rate [Pulse Oximeter] Respiratory Rate Blood Pressure 99/68 Blood Pressure [Ri ght Upper Arm] Pulse Oximetry 96 96 Oxygen Delivery Me thod Course Course Hospital Course: Patient returns today 3 days in a row for ongoing headache. Certainly history does suggest intractable migraine but I believe we need to draw blood for leuks closer look at CBC, comprehensive panel, urinalysis. Would also add COVID test, West Nile, strep. Chest x-ray will also be done. Once these results are made available I will speak to patient's neurologist. If neurologist not available as this is a Wednesday evening will speak to [facility] Neurology. Mom is in agreement with this plan. Does understand I do not have MRI here but CT could be an option. Did talk about radiation exposure but again they would be accepting if this was our only option. Mom states that the ketamine did have somewhat. Will use ketamine 20 mg IV piggyback. Will also give 1 L of normal saline as well as Ativan 0.5 mg IV. Also spoke about the possible use of narcotics. Will hold off right now but if pain is not improved this is certainly an option. Vital Signs Vital signs: Initial Vital Signs Temperature 97.9 F 01/18/22 18:39 Temperature Source Temporal Artery Scan 01/18/22 18:39 Pulse Rate 101 H 01/18/22 18:39 Blood Pressure 92/61 01/18/22 18:39 Blood Pressure Mean 71 01/18/22 18:39 Blood Pressure Position Supine 01/18/22 18:39 Pulse Oximetry 97 01/18/22 18:39 Oxygen Delivery Method 01/18/22 18:39 Vital Signs Temperature 97.9 F 01/18/22 18:39 Pulse Rate 101 H 01/18/22 18:39 Blood Pressure 92/61 01/18/22 18:39 Pulse Oximetry 97 01/18/22 18:39 Oxygen Delivery Method 01/18/22 18:39 Temperature 99.5 F 01/18/22 20:02 Pulse Rate 52 L 01/19/22 06:03 Respiratory Rate 18 01/18/22 20:02 Blood Pressure 99/68 01/19/22 06:02 Pulse Oximetry 96 01/19/22 06:03 Oxygen Delivery Method 01/18/22 20:02 Medical Decision Making MDM Narrative Medical decision making narrative: I assumed care of patient from Dr. Fine at approximately 1:00 a.m.. I have reviewed the CT and CT venogram findings with patient, these are reassuring. I have reviewed her labs and see these are also reassuring. She states that the most recent interventions have been somewhat helpful for her headache but the headache has been starting to return over the last 20 minutes or so. Per the recommendations of the Neurology team, we will now be infusing ergotamine with Reglan and Benadryl. I had a medina discussion with patient that unfortunately, we may not be able to achieve her goal of being pain free but I am hoping that we can make her headache tolerable. She does have 2 different neurologist that she sees and has failed multiple prior treatments. This is somewhat discouraging that I will find a simple solution for her. Updated 335: Unfortunately, the ergotamine medication is not available at our facility. This was further discussed with patient. I do recommend that we move forward with the Reglan and Benadryl infusion that we also try a little bit of tramadol as she has responded to the narcotics. I ordered the tramadol at 100 mg. The head of her headache is 6 or below, she will be discharging home with campus security to her significant other's apartment. She was agreeable to a trial of the or got any medications which have been sent to her local pharmacy. Counseled patient that typically oral medications are more easily available but there are injectable and nasal options as well. Those options may be more effective but can be very difficult to find and I want to ensure that the trial of this medication can be performed efficiently for her very polite and understanding. 7:00 a.m. update: Patient finished her infusions around 4:00 a.m., quickly drifting off to sleep after the Reglan and Benadryl were given sleeping well f rom 45 until I woke her up at 7. We all agreed that this was in her best interest to get some rest. Upon awakening, she says that she is feeling a little groggy and foggy but that her headache is improving though certainly not completely gone. She is going to make calls to her significant other and mom who should be in town shortly this see if someone can offer her a ride home. She is still in agreement to picking up the prescription medication and continuing with this plan of care. 8:00 a.m. update: Patient was able to get a hold of her family they will be picking her up within 10 minutes. She is currently rating her headache at 2 to 3/10. She is a little groggy from the Benadryl and Reglan but otherwise does feel like things are doing better. She understands the plan of care with the ergotamine medication Lab Data Labs: Lab Results 01/18/22 01/18/22 01/18/22 Range/Units 20:51 20:51 20:51 WBC (4.50-11.00) K/uL RBC (4.00-5.20) m/uL Hgb (12.0-16.0) gm/dL Hct (33.0-51.0) % MCV (80-100) fL MCH (26-34) pg MCHC (32-36) gm/dL RDW Coeff of Yahaira (11.5-15.5) % Plt Count (140-440) K/uL Neut % (Auto) (42.0-72.0) % Lymph % (Auto) (20-44) % [place] % (Auto) (0.0-11.0) % Eos % (Auto) (0.0-7.0) % Baso % (Auto) (0.0-3.0) % Neut # (Auto) (1.7-7.0) K/uL Lymph # (Auto) (0.90-2.90) K/uL [place] # (Auto) (0.00-0.90) K/UL Eos # (Auto) (0.00-0.50) K/uL Baso # (Auto) (0.00-0.30) K/uL Abs Immat Gran (auto) (0.00-0.30) K/uL Sodium (135-149) mmol/L Potassium (3.6-5.1) mmol/L Chloride (96-114) mmol/L Carbon Dioxide (20-32) mmol/L BUN (5-24) mg/dL Creatinine (0.5-1.5) mg/dL Estimated Creat Clear Estimated GFR ml/min Glucose (60-115) mg/dL Calcium (8.4-10.6) mg/dL Total Bilirubin (0.1-1.5) mg/dL AST (12-35) U/L ALT (4-35) U/L Alkaline Phosphatase (40-150) U/L C-Reactive Protein (0.5-1.0) mg/dL Total Protein (6.0-8.3) g/dL Albumin (3.3-5.0) g/dL Urine Color Yellow (Yellow) Urine Appearance Clear (Clear) Urine pH 6.0 (5.0-8.5) Ur Specific [place] >= 1.030 (1.000-1.030) Urine Protein Negative (Negative) Urine Glucose (UA) Negative (Negative) Urine Ketones Negative (Negative) Urine Blood 1+ A (Negative) Urine Nitrite Negative (Negative) Urine Bilirubin Negative (Negative) Urine Urobilinogen 0.2 (0.2-1.0) Ur Leukocyte Esterase Trace A (Negative) Urine RBC 0-2 (0-2) Urine WBC 0-2 (0-5) Urine WBC Clumps None (None) Ur Squamous Epith Cells None (None-Few) Urine Bacteria None (None) SARS-CoV-2 (PCR) Negative SARS-CoV-2 (Negative) Influenza Type A (PCR) Negative PCR FLU A (Negative) Influenza Type B (PCR) Negative PCR FLU B (Negative) Group A Strep DNA NOT DETECTED (No Detected) 01/18/22 01/18/22 Range/Units 20:55 20:55 WBC 10.22 (4.50-11.00) K/uL RBC 4.40 (4.00-5.20) m/uL Hgb 13.4 (12.0-16.0) gm/dL Hct 39.6 (33.0-51.0) % MCV 90 (80-100) fL MCH 31 (26-34) pg MCHC 34 (32-36) gm/dL RDW Coeff of Yahaira 11.6 (11.5-15.5) % Plt Count 358 (140-440) K/uL Neut % (Auto) 78.8 H (42.0-72.0) % Lymph % (Auto) 13.8 L (20-44) % [place] % (Auto) 6.9 (0.0-11.0) % Eos % (Auto) 0.1 (0.0-7.0) % Baso % (Auto) 0.3 (0.0-3.0) % Neut # (Auto) 8.10 H (1.7-7.0) K/uL Lymph # (Auto) 1.40 (0.90-2.90) K/uL [place] # (Auto) 0.70 (0.00-0.90) K/UL Eos # (Auto) 0.01 (0.00-0.50) K/uL Baso # (Auto) 0.03 (0.00-0.30) K/uL Abs Immat Gran (auto) 0.01 (0.00-0.30) K/uL Sodium 140 (135-149) mmol/L Potassium 3.9 (3.6-5.1) mmol/L Chloride 105 (96-114) mmol/L Carbon Dioxide 27 (20-32) mmol/L BUN 15 (5-24) mg/dL Creatinine 0.6 (0.5-1.5) mg/dL Estimated Creat Clear 117.31 Estimated GFR 131 ml/min Glucose 130 H (60-115) mg/dL Calcium 8.7 (8.4-10.6) mg/dL Total Bilirubin 0.4 (0.1-1.5) mg/dL AST 20 (12-35) U/L ALT 17 (4-35) U/L Alkaline Phosphatase 83 (40-150) U/L C-Reactive Protein < 0.5 L (0.5-1.0) mg/dL Total Protein 6.9 (6.0-8.3) g/dL Albumin 4.4 (3.3-5.0) g/dL Urine Color (Yellow) Urine Appearance (Clear) Urine pH (5.0-8.5) Ur Specific [place] (1.000-1.030) Urine Protein (Negative) Urine Glucose (UA) (Negative) Urine Ketones (Negative) Urine Blood (Negative) Urine Nitrite (Negative) Urine Bilirubin (Negative) Urine Urobilinogen (0.2-1.0) Ur Leukocyte Esterase (Negative) Urine RBC (0-2) Urine WBC (0-5) Urine WBC Clumps (None) Ur Squamous Epith Cells (None-Few) Urine Bacteria (None) SARS-CoV-2 (PCR) (Negative) Influenza Type A (PCR) (Negative) Influenza Type B (PCR) (Negative) Group A Strep DNA (No Detected) Discharge Plan Discharge Clinical Impression: Migraine Patient Disposition: Home w/ Parent or Adult Condition: Stable Instructions: Migraine Headache (ED) Additional Instructions: I am sorry that this migraine has been so severe. I had hoped that you would respond to the steroids and other treatments. As we discussed, the Neurology team is recommending a trial of a family of medications called ergotamines. Unfortunately, these are not available at our [facility] emergency room. They are available at the local pharmacy which unfortunately, is not open at this time of day. 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 Update your neurology team on the outcomes of this trial. Thankfully, the CT scan did not reveal any abnormalities. This is good news. She may continue using the Toradol, push fluids, other typical medications that you take for your migraines. Your welcome back in the emergency department if your symptoms are not improving as expected. Try to get some more rest this morning before the pharmacy opens, then take ergotamine medication as planned. Activity Level: Activity as Tolerated Discharge Diet: Regular Prescriptions: New ergotamine-caffeine 1-100 mg tablet See Rx Instructions .ROUTE .COMPLEX Qty: 30 1RF Rx Instructions: take 2 tablets at onset of headache; if no relief, may repeat 1 tablet after at least 2 hrs; max = 3 tabs/24 hrs and 5 tablets per week No Action lamotrigine 25 mg tablet propranolol 10 mg tablet Label Comments: TAKE 1 TO 2 TABLETS BY MOUTH TWICE DAILY. START WITH 1 TABLET TWICE DAILY AND INCREASE TO 2 TABLETS TWICE DAILY AFTER 2 WEEKS TOLERATED prednisone 20 mg tablet 20 mg PO BID Qty: 10 0RF ketorolac 10 mg tablet 10 mg PO Q8H 5 Days Qty: 15 0RF Follow Up/Referrals: Provider,Not a Local [Primary Care Provider] - Stand Alone Forms: [employer] Info Instructions
[2022-01-19] MEDS: diphenhydrAMINE 12.5 MG in 0.9 % SODIUM CHLORIDE 100 ml 100 ML 401 MG IVPB (03:42)
[2022-01-19] MEDS: METOCLOPRAMIDE HCL 10 MG in 0.9 % SODIUM CHLORIDE 100 ml 100 ML 306 MG IVPB (03:42)
[2022-01-19] MEDS: TRAMADOL HCL 50 MG TABLET 100 MG PO (04:00)
--- NOTE | 2022-01-19 08:25 | ED.NURSE ---
was discharged with mother. was sleepy but did feel much better -pain 2-3/10.
== END 2022-01-19 08:25 | disposition home or self-care (01) ==
PROVIDERS: Family Medicine; Emergency Provider Family Medicine
DX: G43.919 Migraine, unspecified, intractable, without status migrainosus (principal)
CPT/HCPCS: 36415; 70470; 71045; 80053; 81001; 85025; 86140; 86789; 87631; 87651; 96361; 96365; 96375; 96376; 99283; 99284; 99285; A9270; J1200; J2060; J2270; J2765; J3490; J7030; Q9967

== ENCOUNTER 2022-01-20 12:09 | Emergency (ER) | payer OTHER, SELFPAY ==
[2022-01-20 13:13] VITALS: BP 108/77; PULSE 80; RESP 16; TEMP 36.7; O2SAT 96; BMI 22.9
[2022-01-20] MEDS: ONDANSETRON ODT 4 MG TAB PO (15:25)
[2022-01-20] MEDS: OXYCODONE 5 MG TABLET PO (15:25)
--- NOTE | 2022-01-20 19:12 | ED_ITS ---
HPI - General Adult General Date Seen: 01/20/22 Chief complaint: Headache/Migraine Stated complaint: Migraine Time Seen by Provider: 01/20/22 14:43 Source: patient and family History of Present Illness HPI narrative: Patient is a 21-year-old female with a history of migraine headache. She has been seen here now 4 days in a row for headache which has been persistent for 10 days. She does have a migraine specialist in [place]. She is a [employer] student, a senior. Her mom flew in on Wednesday night on the red eye to help care for her, and is with her today. This headache is typical for her aside from its severity and persistence. She was started on propanolol a couple of weeks ago, which is a switch for her, prior to that she had been on amitriptyline. Neither of these drugs have been helpful for her. She has not tolerated tryptans in the past as she does not like the jaw tightening that they cause. Previously, she has been given standard medications for migraine here, including Benadryl, Reglan, Toradol, Zofran, and ketamine. None of these have provided relief. In the planning official hours on Wednesday, she had a workup including a CT of the head as well as a CT venogram, and labs, all of which were unrevealing. Dr. Fine also spoke with Neurology, who recommended IV DHE, which is a medication that we do not have on formulary. She did send a prescription for an oral form of this, but Mom says by the time they were able to fill that, the headache was back to very severe and she just did not feel that it had an opportunity to be successful. She did have morphine at her last visit, which briefly improve the headache, but of course as the narcotic wore off the headache returned. Mom is back today, saying that they just do not know what to do. Her headache is severe, and they do not know how to manage the pain. They do have a video visit scheduled with her migraine doctor in [place] at 5:00 p.m. today. She notes photophobia and nausea. She has not had vomiting. Otherwise symptoms are unchanged. Headache is holocranial and severe. No neurologic complaints. Related Data Home Medications Medication Instructions Recorded Confirmed lamotrigine 25 mg tablet mg 01/16/22 propranolol 10 mg tablet mg 01/16/22 Previous Rx's Medication Instructions Recorded prednisone 20 mg tablet 20 mg PO BID #10 tabs 01/16/22 ketorolac 10 mg tablet 10 mg PO Q8H 5 days #15 tabs 01/17/22 ergotamine 1 mg-caffeine 100 mg See Rx Instructions PO .COMPLEX 01/19/22 tablet #30 tabs Allergies Allergy/AdvReac Type Severity Reaction Status Date / Time Penicillins Allergy Unknown Verified 01/16/22 18:30 zolmitriptan Allergy Unknown Verified 01/16/22 18:30 Review of Systems Status of ROS: Reports: 10 or more systems reviewed and unremarkable except as noted in History and below [facility] Social History Smoking Status: Never smoker Do you use any of these nicotine containing products: None Second hand tobacco smoke exposure: No How often do you have a drink containing alcohol: never AUDIT-C Alcohol total score: 0 Non-prescribed substance use: marijuana (any form) service: No Exam Narrative: Exam Narrative: Vital signs as noted above. In general, an alert, nontoxic young woman, wearing dark sunglasses. Head: Normocephalic, atraumatic. Eyes: Pupils are equal reactive. Extraocular movements are full. Conjunctivae are normal. ENT: Mucous membranes are moist. Neck: Supple without lymphadenopathy. Heart: Regular rate and rhythm. No murmur or rub. Lungs: Clear bilaterally. No increased work of breathing, crackles or wheezes. Abdomen: Soft and nontender. No organomegaly. Extremities: Well perfused. No edema. No calf tenderness. Pulses intact. Neurologic: Patient is alert and oriented to person and place. Speech is fluent. Face is symmetric. Moves all extremities equally. Affect: Normal. Skin: Warm and dry. Well perfused. Const: Vital Signs, click to edit/add: Vital Signs - 24 hr 01/20/22 13:13 Temperature 98.0 F Pulse Rate [Right Pulse Oximeter] 80 Respiratory Rate 16 Blood Pressure [Ri ght Upper Arm] 108/77 Pulse Oximetry 96 Oxygen Delivery Me thod Room Air Course Course Hospital Course: I had a lengthy conversation with the patient and her mother. We discussed that we could certainly repeat the medications that she has had here previously. However, these have not been helpful for her in the past and I am concerned that they will not be helpful for her today. I discussed with Mom that I do not think giving IV narcotics is a good way to manage this headache. In the same way that giving IV narcotics for any other acute painful process only masks the pain temporarily, I do not think the narcotic is likely to relieve the migraine, only temporarily relieve the pain. I expressed concern about rebound pain as well as just general concern about using narcotics for management of migraine. The last time she was here, neurology recommended IV Ergotamines as the next step for management of this headache. I should mention that she has already received both IV and oral steroids. Given that we do not have this medication here, I suggested to mom that another option would be to go to an ER at a bigger center where that medication would be available. Her appointment with her migraine specialist is coming up in a couple of hours, so what we have decided to do is to give her a dose of oxycodone and Zofran here simply to try an relieve her pain to a degree that she can talk with her migraine specialist. After that, mom plans to take her likely to [place], given that the nursing strike is affecting hospitals in the [facility] to a greater degree, where hopefully they can provide the medication which neurology recommended. Vital Signs Vital signs: Initial Vital Signs Temperature 98.0 F 01/20/22 13:13 Temperature Source Temporal Artery Scan 01/20/22 13:13 Pulse Rate 80 01/20/22 13:13 Pulse Rhythm 01/20/22 13:13 Respiratory Rate 16 01/20/22 13:13 Blood Pressure 108/77 01/20/22 13:13 Blood Pressure Mean 87 01/20/22 13:13 Blood Pressure Position Sitting 01/20/22 13:13 Pulse Oximetry 96 01/20/22 13:13 Oxygen Delivery Method 01/20/22 13:13 Vital Signs Temperature 98.0 F 01/20/22 13:13 Pulse Rate 80 01/20/22 13:13 Respiratory Rate 16 01/20/22 13:13 Blood Pressure 108/77 01/20/22 13:13 Pulse Oximetry 96 01/20/22 13:13 Oxygen Delivery Method 01/20/22 13:13 Temperature 98.0 F 01/20/22 13:13 Pulse Rate 80 01/20/22 13:13 Respiratory Rate 16 01/20/22 13:13 Blood Pressure 108/77 01/20/22 13:13 Pulse Oximetry 96 01/20/22 13:13 Oxygen Delivery Method 01/20/22 13:13 Discharge Plan Discharge Clinical Impression: Intractable migraine Patient Disposition: Home w/ Parent or Adult Condition: Stable Instructions: Migraine Headache (ED) Additional Instructions: Follow-up with your Migraine Specialist virtually as planned. Consider treatment at a larger center where other modalities such as IV DHE might be available. Prescriptions: No Action lamotrigine 25 mg tablet propranolol 10 mg tablet Label Comments: TAKE 1 TO 2 TABLETS BY MOUTH TWICE DAILY. START WITH 1 TABLET TWICE DAILY AND INCREASE TO 2 TABLETS TWICE DAILY AFTER 2 WEEKS TOLERATED prednisone 20 mg tablet 20 mg PO BID Qty: 10 0RF ketorolac 10 mg tablet 10 mg PO Q8H 5 Days Qty: 15 0RF ergotamine-caffeine 1-100 mg tablet See Rx Instructions .ROUTE .COMPLEX Qty: 30 1RF Rx Instructions: take 2 tablets at onset of headache; if no relief, may repeat 1 tablet after at least 2 hrs; max = 3 tabs/24 hrs and 5 tablets per week Follow Up/Referrals: Provider,Not a Local [Primary Care Provider] - Stand Alone Forms: [employer] Info Instructions
== END 2022-01-20 15:48 | disposition home or self-care (01) ==
LOC: ED 15:40
PROVIDERS: Emergency Provider Emergency Medicine
DX: G43.911 Migraine, unspecified, intractable, with status migrainosus (principal)
CPT/HCPCS: 99283; A9270